=== PATIENT | female | born 1935 | race Caucasian/White ===

== ENCOUNTER → 2017-06-25 | Outpatient (CLI) | payer BC ==
--- NOTE | 2017-06-25 17:52 | KCIC ---
Bilateral digital screening mammograms: Reason for examination: Routine screening. History of left breast cancer with lumpectomy. Comparison is made to previous studies dated 06/23/2016 and 06/21/2015. Interpretation was made with the benefit of CAD. The skin and nipples show no abnormalities. No abnormal axillary lymph nodes are seen. The breast parenchyma is heterogeneously dense. (Breast density: Category C) There are postop changes in the left breast. There are no new dominant masses, suspicious calcifications or architectural distortion. A few benign calcifications are again seen. Impression: Postop changes in the left breast. No evidence of new or recurrent malignancy. Recommend routine screening. Your patient's mammogram demonstrates that she has dense breast tissue (breast density category C or D), which could hide abnormalities, and if she has other risk factors for breast cancer that have been identified, she might benefit from supplemental screening tests that may be suggested by you as her ordering physician. Dense breast tissue, in and of itself, is a relatively common condition. Therefore, this information is not provided to cause undue concern, but rather to raise your awareness and to promote discussion with your patient regarding the presence of other risk factors, in addition to dense breast tissue. Your patient's mammography results will be sent to her. BI-RADS Category 2: Benign. "Our facility is accredited by the [employer] Mammography [employer]." This patient's information has been entered into a reminder system for the patient to be notified with the results of her examination and a target date for the next mammogram. Electronically signed by: Modesta Schafer MD (06/25/2017 5:49 PM) [id number]
== END | disposition home or self-care (01) ==
LOC: KCIC MAMMO 11:00
PROVIDERS: ATTEND Nurse Practitioner Family
DX: Z12.31 Encounter for screening mammogram for malignant neoplasm of breast (principal)
CPT/HCPCS: G0202; 77067

== ENCOUNTER → 2017-12-21 | Outpatient (CLI) | payer OTHER, BC | END | disposition home or self-care (01) | LOC: KCIC 11:17 | DX: S33.140A Subluxation of L4/L5 lumbar vertebra, initial encounter (principal); M47.896 Other spondylosis, lumbar region; M48.54XA Collapsed vertebra, not elsewhere classified, thoracic region, initial encounter for fracture; K59.00 Constipation, unspecified; M81.8 Other osteoporosis without current pathological fracture; X58.XXXA Exposure to other specified factors, initial encounter; Y93.89 Activity, other specified; Y92.89 Other specified places as the place of occurrence of the external cause; Y99.8 Other external cause status | CPT/HCPCS: 72100; 73521 ==

== ENCOUNTER → 2018-01-04 | Outpatient (CLI) | payer OTHER | END | disposition home or self-care (01) | LOC: KCIC MRI 09:25 | DX: M48.07 Spinal stenosis, lumbosacral region (principal); M51.37 Other intervertebral disc degeneration, lumbosacral region; M43.16 Spondylolisthesis, lumbar region; M48.54XD Collapsed vertebra, not elsewhere classified, thoracic region, subsequent encounter for fracture with routine healing | CPT/HCPCS: 72148 ==

== ENCOUNTER → 2018-06-27 | Outpatient (CLI) | payer BC, OTHER ==
--- NOTE | 2018-06-27 16:55 | KCIC ---
Bilateral digital screening mammograms: Reason for examination: Routine screening. Comparison is made to previous studies dated 06/25/2017 and 06/23/2016. Interpretation was made with the benefit of CAD. The skin and nipples show no abnormalities. No abnormal axillary lymph nodes are seen. The breast parenchyma is heterogeneously dense. (Breast density: Category C) There are no dominant masses, suspicious calcifications or architectural distortion. A few benign calcifications are again seen. Impression: No evidence of malignancy. Recommend routine screening. Your patient's mammogram demonstrates that she has dense breast tissue (breast density category C or D), which could hide abnormalities, and if she has other risk factors for breast cancer that have been identified, she might benefit from supplemental screening tests that may be suggested by you as her ordering physician. Dense breast tissue, in and of itself, is a relatively common condition. Therefore, this information is not provided to cause undue concern, but rather to raise your awareness and to promote discussion with your patient regarding the presence of other risk factors, in addition to dense breast tissue. Your patient's mammography results will be sent to her. BI-RADS Category 2: Benign. "Our facility is accredited by the [employer] Mammography [employer]." This patient's information has been entered into a reminder system for the patient to be notified with the results of her examination and a target date for the next mammogram. Electronically signed by: Modesat Schafer MD (06/27/2018 4:51 PM) [id number]
== END | disposition home or self-care (01) ==
LOC: KCIC MAMMO 14:14
PROVIDERS: ATTEND Nurse Practitioner Family
DX: Z12.31 Encounter for screening mammogram for malignant neoplasm of breast (principal)
CPT/HCPCS: 77067

== ENCOUNTER → 2020-10-21 | Outpatient (CLI) | payer OTHER ==
--- NOTE | 2020-10-21 15:28 | RAD ---
EXAMINATION: Magnetic resonance imaging (MRI) of the brain and brainstem without contrast 10/21/2020 11 :10 AM HISTORY: Parkinson's disease. Tremor and stiffness. TECHNIQUE: Multiplanar multi-weighted MRI of the brain and brainstem was performed without intravenou s contrast using the general brain protocol. COMPARISON: None available. FINDINGS: The scalp and calvarium are normal. The superior sagittal sinus demonstrates normal venous flow. The corpus callosum is normal in shape and signal intensity. The posterior fossa is unremarkable. The p ituitary and sella are normal. The brainstem and craniocervical junction are unremarkable. There are T2/FLAIR signal hyperintense foci in the periventricular and subcortical white matter most suggestiv e of mild chronic small vessel ischemic changes. Diffusion weighted images reveal no hyperintensities to suggest acute cerebral infarction. Focus of s usceptibility artifact is identified along the atria of the left lateral ventricle which could repres ent sequela prior hemorrhage. Ventricles, sulci and basal cisterns are prominent compatible with mode rate moderate generalized cerebral volume loss. The paranasal sinuses are normal. The visualized portions of the mastoids are unremarkable. The orbi ts appear normal with exception of bilateral lens replacement. Normal flow voids are demonstrated in the carotid arteries and basilar artery. IMPRESSION: 1. No evidence for acute or subacute ischemia. No significant signal alteration within the subthalami c nuclei/midbrain. 2. There are T2/FLAIR signal hyperintense foci in the periventricular and subcortical white matter mo st suggestive of mild chronic small vessel ischemic changes. 3. Mild to moderate generalized cerebral volume loss. 4. Focus of susceptibility artifact along the ependymal lining of the atria of the left lateral ventr icle could reflect sequela of prior microhemorrhage. Electronically signed by: Laurence Liz MD (10/21/2020 3:26 PM) [id number]
== END ==
LOC: MRI 11:42
PROVIDERS: ATTEND Nurse Practitioner Family
DX: G20 Parkinson's disease (principal)
CPT/HCPCS: 70551